=== PATIENT | female | born 1955 | race African-American/Black ===

== ENCOUNTER 2016-05-11 13:39 | Observation (INO) | payer BC, OTHER ==
[2016-05-11] VITALS (7 sets, daily range): BP systolic 165–199; BP diastolic 69–106; PULSE 84–107; RESP 18–20; O2SAT 96–100
[~2016-05-11 13:39] MED LIST: AMBI10TA PO; CELE10TA9 PO; DIAZ5 PO; IBUP-238 PO; OXYC-360 PO
[2016-05-11] MEDS ORDERED: SODIUM CHLOR 0.9% 1000 ML INJ 1,000 ML IV ONE (13:44)
--- NOTE | 2016-05-11 14:04 | PD ---
HPI Chief Complaint: Stroke Alert Time Seen by Provider: 13:44 Travel History International Travel<30 days: No Contact w/Intl Traveler<30days: No Traveled to known affect area: No History of Present Illness HPI 60-year-old female presents by ambulance as a stroke alert. The ambulance team states that they were initially called for a seizure. 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 In route she went back to normal again and then she started to develop the weakness again. On arrival here patient states that she had taken her NovoLog and was going to get something to eat when she didn't feel good and got help going down a step. Bystanders prevented her from hitting her head. 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 She denies being on any blood thinners currently. PFSH Past Medical History Narrative Medical By records Arthritis: Yes Blood Disorders: No Anxiety: Yes Cancer: Yes (UTERINE) Cardiovascular Problems: Yes Diabetes: No Endocrine: No Glaucoma: No Genitourinary: No Hepatitis: No Hiatal Hernia: No Hypertension: Yes Immune Disorder: No Musculoskeletal: Yes Neurologic: No Psychiatric: Yes Respiratory: No Thyroid Disease: No Menopausal: Yes Ovarian Cysts: Yes Past Surgical History Narrative Surgical By records Abdominal Surgery: No Cardiac Surgery: No Ear Surgery: Yes (PE TUBE RIGHT EAR) Endocrine Surgery: No Eye Surgery: No Genitourinary Surgery: No Gynecologic Surgery: Yes (D&C) Oral Surgery: No Thoracic Surgery: No Other Surgery: Yes (R WRIST) Social History Narrative Social History By records Alcohol Use: Yes (OCC) Tobacco Use: Yes (1/4PK/DAY) Substance Use: No Allergies-Medications (Allergen,Severity, Reaction): Coded Allergies: Tomato (Verified Allergy, Severe, ITCHING, 05/11/16) Levaquin (Verified Allergy, Intermediate, ITCHING, 05/11/16) Pineapple (Verified Allergy, Intermediate, LIPS SWELL, 05/11/16) Uncoded Allergies: VICODEN (Allergy, Mild, 04/20/08) MAYONNAISE (Adverse Reaction, Severe, LIPS SWELL, 03/13/08) Reported Meds & Prescriptions Reported Meds & Active Scripts Active Reported Tramadol (Tramadol HCl) 50 Mg Tab 50 Mg PO Q6H PRN Omeprazole 20 Mg Tab 20 Mg PO DAILY Novolog Inj (Insulin Aspart) 1,000 Unit/10 Ml Vial 0 SQ DIRECTED Sliding Scale as directed. Lantus Solostar Pen Inj (Insulin Glargine) 300 Unit/3 Ml Pen 40 Units SQ HS Hydrochlorothiazide 25 Mg Tab 25 Mg PO DAILY Atorvastatin (Atorvastatin Calcium) 20 Mg Tab 20 Mg PO HS Lisinopril 20 Mg Tab 20 Mg PO DAILY Zetia (Ezetimibe) 10 Mg Tab 10 Mg PO DAILY Gabapentin 600 Mg Tab 400 Mg PO QID Sertraline (Sertraline HCl) 50 Mg Tab 50 Mg PO DAILY Alprazolam 0.25 Mg Tab 0.25 Mg PO BID PRN Review of Systems Except as stated in HPI: all other systems reviewed are Neg Physical Exam Narrative GENERAL: Well-nourished, well-developed patient. SKIN: Warm and dry. HEAD: Normocephalic and atraumatic. EYES: No injection or drainage. ENT: No nasal drainage noted. NECK: Supple, trachea midline. CARDIOVASCULAR: Regular rate and rhythm RESPIRATORY: Breath sounds equal bilaterally. No accessory muscle use. GASTROINTESTINAL: Abdomen soft, non-tender, nondistended. EXTREMITIES: No edema. NEUROLOGICAL: Awake and alert. Motor and sensory grossly within normal limits. Normal speech. Equal grasp bilaterally Data Data Last Documented VS Vital Signs Date Time Temp Pulse Resp B/P Pulse Ox O2 Delivery O2 Flow Rate FiO2 05/11/16 14:39 100 Nasal Cannula 2 05/11/16 14:00 84 19 199/106 Orders Diet Npo (05/11/16 Lunch) Activity Bed Rest (05/11/16 ) Electrocardiogram (05/11/16 ) I-Stat Creatinine (05/11/16 13:44) I-Stat Profile (05/11/16 13:44) Prothrombin Time / Inr (Pt) (05/11/16 13:44) Act Partial Throm Time (Ptt) (05/11/16 13:44) Complete Blood Count With Diff (05/11/16 13:44) Fibrinogen (05/11/16 13:44) Creatine Kinase (Cpk) (05/11/16 13:44) Troponin I (05/11/16 13:44) Ua Includes Microscopic (05/11/16 13:44) Drug Screen, Random Urine (05/11/16 13:44) Type And Screen (05/11/16 13:44) Ct Brain W/O Iv Contrast(Rout) (05/11/16 ) Cta Brain W Iv Contrast W 3d (05/11/16 13:44) Cta Neck W Iv Contrast W 3d (05/11/16 13:44) Ct Cerebral Perf W Iv Cont W3d (05/11/16 13:44) Consult Neurology (05/11/16 ) Blood Glucose (05/11/16 13:44) Ecg Monitoring (05/11/16 13:44) Nursing Bedside Swallow Assess .ONCE (05/11/16 13:44) Iv Access Insert/Monitor (05/11/16 13:44) NPO (05/11/16 13:44) Oximetry (05/11/16 13:44) Sodium Chlor 0.9% 1000 Ml Inj (Ns 1000 M (05/11/16 13:44) Resp Oxygen Haroon C Titrat 1-4 L (05/11/16 13:44) Cath For Specimen (05/11/16 13:44) Alcohol (Ethanol) (05/11/16 14:06) Iohexol 350 Inj (Omnipaque 350 Inj) (05/11/16 14:13) Admit Order (Ed Use Only) (05/11/16 14:31) Aspirin (Aspirin) (05/11/16 14:45) Labs Laboratory Tests Test 05/11/16 05/11/16 13:45 14:32 White Blood Count 12.2 TH/MM3 Red Blood Count 4.29 MIL/MM3 Hemoglobin 13.8 GM/DL Bedside Hemoglobin 13.9 G/DL Hematocrit 41.8 % Bedside Hematocrit 41.0 % Mean Corpuscular Volume 97.6 FL Mean Corpuscular Hemoglobin 32.3 PG Mean Corpuscular Hemoglobin 33.1 % Concent Red Cell Distribution Width 14.4 % Platelet Count 356 TH/MM3 Mean Platelet Volume 8.8 FL Neutrophils (%) (Auto) 65.1 % Lymphocytes (%) (Auto) 28.3 % Monocytes (%) (Auto) 5.0 % Eosinophils (%) (Auto) 0.6 % Basophils (%) (Auto) 1.0 % Neutrophils # (Auto) 7.9 TH/MM3 Lymphocytes # (Auto) 3.5 TH/MM3 Monocytes # (Auto) 0.6 TH/MM3 Eosinophils # (Auto) 0.1 TH/MM3 Basophils # (Auto) 0.1 TH/MM3 CBC Comment DIFF FINAL Differential Comment Prothrombin Time 10.3 SEC Prothromb Time International 0.9 RATIO Ratio Activated Partial 22.2 SEC Thromboplast Time Fibrinogen 250 mg/dL Bedside Sodium 138 MMOL/L Bedside Potassium 4.3 MMOL/L Bedside Chloride 102 MMOL/L Bedside Blood Urea Nitrogen 11 MG/DL Bedside Creatinine 0.8 MG/DL Bedside Glucose 214 MG/DL Total Creatine Kinase 122 U/L Troponin I LESS THAN 0.02 NG/ML Blood Type O POSITIVE Antibody Screen NEGATIVE Urine Color LIGHT-YELLOW Urine Turbidity CLEAR Urine pH 6.5 Urine Specific [place] 1.033 Urine Protein NEG mg/dL Urine Glucose (UA) 1000 mg/dL Urine Ketones NEG mg/dL Urine Occult Blood NEG Urine Nitrite NEG Urine Bilirubin NEG Urine Urobilinogen LESS THAN 2.0 MG/DL Urine Leukocyte Esterase NEG Urine RBC 2 /hpf Urine WBC 2 /hpf Urine Squamous Epithelial 3 /hpf Cells Urine Bacteria RARE /hpf Microscopic Urinalysis Comment [facility] Medical Decision Making Medical Screen Exam Complete: Yes Emergency Medical Condition: Yes Medical Record Reviewed: Yes (limited past history confirmed) Interpretation(s) I stats reviewed glucose 214, normal electrolytes and renal function ct brain no acute per radiology at 1410 CBC & BMP Diagram 05/11/16 13:45 Last 24 hours Impressions Neck CTA 05/11/164 Signed Impressions: Service Date/Time: Wednesday, May 11, 2016 14:11 - CONCLUSION: 1. There is very minimal atherosclerotic plaquing in the carotid bifurcation on the right. 2. The right vertebral is diminutive in size. Rachid Fernandes MD Head/Neck CTA with Brain Perfusion 05/11/164 Signed Impressions: Service Date/Time: Wednesday, May 11, 2016 14:07 - CONCLUSION: 1. Normal examination. Rachid Fernandes MD Head CTA 05/11/16 1344 Signed Impressions: Service Date/Time: Wednesday, May 11, 2016 14:11 - CONCLUSION: 1. Negative CTA. No large or central vessel occlusion identified. Rachid Fernandes MD Head CT 05/11/16 0000 Signed Impressions: Service Date/Time: Wednesday, May 11, 2016 13:48 - CONCLUSION: 1. No evidence for recent infarct. Low-attenuation in the white matter most characteristic of chronic microvascular ischemic changes. Rey Franco MD Differential Diagnosis Bleed, TIA, hypoglycemia, electrolyte abnormality.... Narrative Course Will discuss with neurology and check stroke workup and reevaluate. Onset of symptoms were 30 minutes prior to arrival here with the ambulance team. Initial stroke scale is currently 0 she is back to baseline on my initial evaluation. The ambulance team described an expressive aphasia and left-sided weakness that intermittently would come and go on return from ct stroke alert scale still 0, patient declined TPA given intermittent symptoms without any currently and does not think life debilitating symptoms at this point. She agrees to admission for further care Physician Communication Physician Communication dr tripp given initial report and will follow dr tripp updated and agrees to no tpa, states give aspirin and admit dr bueno agrees to admit Diagnosis Primary Impression: Left-sided weakness Additional Impression: Expressive aphasia Admitting Information Admitting Physician Requests: Admit Estrella Bustos MD May 11, 2016 14:04
[2016-05-11 14:06] LABS: I-STAT POTASSIUM 4.3 MMOL/L (3.5-4.9); I-STAT SODIUM 138 MMOL/L (138-146)
[2016-05-11 14:08] LABS: AUTOMATED NEUTROPHIL # 7.9 TH/MM3 (1.8-7.7); BASOPHIL # 0.1 TH/MM3 (0-0.2); EOSINOPHIL # 0.1 TH/MM3 (0-0.4); EOSINOPHIL % 0.6 % (0.0-4.0); HEMATOCRIT 41.8 % (35.0-46.0); HEMO FLAGS DIFF FINAL; LYMPH % 28.3 % (9.0-44.0); LYMPHOCYTE # 3.5 TH/MM3 (1.0-4.8); MEAN CELL VOLUME 97.6 FL (80.0-100.0); MEAN CORPUSCULAR HEMOGLOBIN 32.3 PG (27.0-34.0); MEAN CORPUSCULAR HGB CONC 33.1 % (32.0-36.0); NEUT % 65.1 % (16.0-70.0); PLATELET COUNT 356 TH/MM3 (150-450); RED BLOOD COUNT 4.29 MIL/MM3 (4.00-5.30); RED CELL DISTRIBUTION WIDTH 14.4 % (11.6-17.2); WHITE BLOOD COUNT 12.2 TH/MM3 (4.0-11.0)
[2016-05-11] MEDS ORDERED: IOHEXOL 350 MG/ML 10 ML VIAL (for RAD DIAG) IV ONE (14:13)
--- NOTE | 2016-05-11 14:14 | RADRPT ---
EXAM DATE/TIME: 05/11/2016 13:48 [facility] COMPARISON: No previous studies available for comparison. INDICATIONS : Stroke alert; left side weakness, intermittent expressive aphagia. RADIATION DOSE: 52.83 CTDIvol (mGy) This report was called by Dr. Franco to Dr. Bustos at 2: 10 PM MEDICAL HISTORY : Stroke. Cardiovascular disease Hypertension.Uterine cancer. SURGICAL HISTORY : None. ENCOUNTER: Initial ACUITY: 1 day PAIN SCALE: 0/10 LOCATION: cranial TECHNIQUE: Multiple contiguous axial images were obtained of the head. Using automated exposure control and adj ustment of the mA and/or kV according to patient size, radiation dose was kept as low as reasonably a chievable to obtain optimal diagnostic quality images. FINDINGS: There are white matter ischemic changes in the periventricular region. No mass, shift. No hemorrhage. No hydrocephalus. No abnormal extra-axial fluid. CONCLUSION: 1. No evidence for recent infarct. Low-attenuation in the white matter most characteristic of chronic microvascular ischemic changes. Rey Franco MD on May 11, 2016 at 14:02 Board Certified Radiologist. This report was verified electronically.
[2016-05-11 14:17] LABS: APTT (PATIENT) 22.2 SEC (24.3-30.1); INTERNATIONAL NORMALIZED RATIO 0.9 RATIO; PROTHROMBIN TIME - PATIENT 10.3 SEC (9.8-11.6)
[2016-05-11 14:27] LABS: CREATINE KINASE 122 U/L (26-192)
--- NOTE | 2016-05-11 14:43 | RADRPT ---
EXAM DATE/TIME: 05/11/2016 14:11 [facility] COMPARISON: CT BRAIN W/O CONTRAST, May 11, 2016, 13:48. INDICATIONS : Stroke alert; left side weakness, intermittent expressive aphagia. IV CONTRAST: 100 cc Omnipaque 350 (iohexol) IV ; Cumulative dose for multiple exams. RADIATION DOSE: 14.78 CTDIvol (mGy) ; Combined studies MEDICAL HISTORY : Stroke. Cardiovascular disease Hypertension.Uterine cancer. SURGICAL HISTORY : None. ENCOUNTER: Initial ACUITY: 1 day PAIN SCALE: 0/10 LOCATION: cranial TECHNIQUE: Volumetric scanning was performed using a multi-row detector CT scanner. The data was post processed with a variety of visualization algorithms including full volume maximum intensity projection, multi -planar sliding thin slab reformation, curved planar reformation, and surface rendering techniques. Using automated exposure control and adjustment of the mA and/or kV according to patient size, radiat ion dose was kept as low as reasonably achievable to obtain optimal diagnostic quality images. FINDINGS: Both distal carotid arteries are patent. The vertebrals are patent. The right vertebral somewhat smal l in size. The basilar is widely patent. The appearance of the anterior and middle cerebral circulation is within normal limits. The posterior cerebral circulation is widely patent CONCLUSION: 1. Negative CTA. No large or central vessel occlusion identified. Rachid Fernandes MD on May 11, 2016 at 14:39 Board Certified Radiologist. This report was verified electronically.
[2016-05-11] MEDS ORDERED: ASPIRIN 325 MG TAB PO ONE (14:45)
[2016-05-11 14:51] LABS: BACTERIA, URINE RARE /hpf; BLOOD, URINE NEG (NEG); GLUCOSE,URINE 1000 mg/dL (NEG); KETONE, URINE NEG (NEG); NITRITE,URINE NEG (NEG); PH, URINE 6.5 (5.0-8.5); SQUAMOUS EPITHELIAL CELL URINE 3 /hpf (0-5); URINE COLOR LIGHT-YELLOW (YELLW/STRAW)
--- NOTE | 2016-05-11 15:06 | RADRPT ---
EXAM DATE/TIME: 05/11/2016 14:07 [facility] COMPARISON: CT BRAIN W/O CONTRAST, May 11, 2016, 13:48. INDICATIONS : Stroke alert; left side weakness, intermittent expressive aphagia. IV CONTRAST: 100 cc Omnipaque 350 (iohexol) IV ; Cumulative dose for multiple exams. RADIATION DOSE: 94.11 CTDIvol (mGy) ; Combined studies MEDICAL HISTORY : Stroke. Cardiovascular disease Hypertension.Uterine cancer. SURGICAL HISTORY : None. ENCOUNTER: Initial ACUITY: 1 day PAIN SCALE: 0/10 LOCATION: cranial TECHNIQUE: CT perfusion of the brain was performed with calculation of input and output functions and generation of color coded blood flow, blood volume and mean transit time maps. Using automated exposure control and adjustment of the mA and/or kV according to patient size, radiation dose was kept as low as reas onably achievable to obtain optimal diagnostic quality images. FINDINGS: There is symmetric perfusion to both cerebral hemispheres, cerebellar hemispheres and normal flow is identified to the brainstem. There are no findings of infarction or ischemic penumbra. CONCLUSION: 1. Normal examination. Rachid Fernandes MD on May 11, 2016 at 15:04 Board Certified Radiologist. This report was verified electronically.
--- NOTE | 2016-05-11 15:09 | RADRPT ---
EXAM DATE/TIME: 05/11/2016 14:11 [facility] COMPARISON: CT BRAIN CEREBRAL PERF ANALYSIS W/3D, May 11, 2016, 14:07. INDICATIONS : Stroke alert; left side weakness, intermittent expressive aphagia. IV CONTRAST: 100 cc Omnipaque 350 (iohexol) IV ; Cumulative dose for multiple exams. RADIATION DOSE: 14.78 CTDIvol (mGy) ; Combined studies MEDICAL HISTORY : Stroke. Cardiovascular disease Hyperthyroidism.Uterine cancer. SURGICAL HISTORY : None. ENCOUNTER: Initial ACUITY: 1 day PAIN SCALE: 0/10 LOCATION: cranial TECHNIQUE: Volumetric scanning was performed using a multirow detector CT scanner. The data was post processed with a variety of visualization algorithms including full-volume maximum intensity projection, multip lanar sliding thin-slab reformation, curved-planar reformation, and surface-rendering techniques. Us ing automated exposure control and adjustment of the mA and/or kV according to patient size, radiatio n dose was kept as low as reasonably achievable to obtain optimal diagnostic quality images. FINDINGS: AORTIC ARCH: There is a three-vessel origin of the great vessels from the aorta. No evidence of ostial narrowing. RIGHT CAROTID: The common carotid artery is intact. The carotid bulb has a normal configuration with only very sligh t atherosclerotic plaquing. The internal carotid artery lumen is smooth without stenosis. The top flavor attendant al carotid artery is intact. LEFT CAROTID: The common carotid artery is intact. The carotid bulb has a normal configuration without ulceration or narrowing. The internal carotid artery lumen is smooth without stenosis. The external carotid ar lisandra is intact. VERTEBRALS: The right vertebral artery is diminutive in size. The left vertebral is a sizable vessel. No stenoti c lesions are seen. CONCLUSION: 1. There is very minimal atherosclerotic plaquing in the carotid bifurcation on the right. 2. The right vertebral is diminutive in size. Rachid Fernandes MD on May 11, 2016 at 15:05 Board Certified Radiologist. This report was verified electronically.
[2016-05-11] MEDS ORDERED: NOVOLOGP2 SQ (15:12)
[2016-05-11] MEDS ORDERED: ZETI10TA5 PO (15:12)
[2016-05-11] MEDS ORDERED: ATOR20TA15 PO (15:12)
[2016-05-11] MEDS ORDERED: TRAM50TA PO (15:12)
[2016-05-11] MEDS ORDERED: GABA600T PO (15:12)
[2016-05-11] MEDS ORDERED: SERT-132 PO (15:12)
[2016-05-11] MEDS ORDERED: ALPR0.25 PO (15:12)
[2016-05-11] MEDS ORDERED: OMEP20TA PO (15:12)
[2016-05-11] MEDS ORDERED: LISI-515 PO (15:12)
[2016-05-11] MEDS ORDERED: HYDR25TA5 PO (15:12)
[2016-05-11] MEDS ORDERED: LANTINJ SQ (15:12)
--- NOTE | 2016-05-11 16:14 | EKG ---
Date Performed: 05/11/2016 Time Performed: 14:28:08 PTAGE: 60 years EKG: Sinus rhythm POSSIBLE LEFT ATRIAL ENLARGEMENT BORDERLINE ECG PREVIOUS TRACING : 09/26/2008 11.18 DOCTOR: Benjie Mauricio Interpretating Date/Time 05/11/2016 16:12:25
--- NOTE | 2016-05-11 17:26 | HHI.HP ---
HPI Service [facility] Primary Care Physician No Primary Care Physician Admission Diagnosis intermittent expressive aphasia Diagnoses: Chief Complaint: Stroke alert Travel History International Travel<30 Days: No Contact w/Intl Traveler <30 Da: No Traveled to Known Affected Are: No History of Present Illness 60 years old female brought in the ambulance to the ED and a stroke alert. Per the EMR patient initially was brought due to seizure however they noticed some difficulty with speech and her blood pressure was 255 systolic with a blood sugar of 300. The patient told me that the symptoms started this afternoon when she woke up and gave herself 10 units of NovoLog and she went to do herself a meal when she started feeling cold with short of breath and feeling wobbly, she denied cold sweat, I discussed with her daughter and with the lady who was with her and witnessed episode. She told me patient lost consciousness for a few seconds and she was shaking all her body, she could not give exact type of that shaking. 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 Then she told me she had a history of glaucoma, and similar episode which she called it a stroke in the past. 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 The lady who witnessed her also mentioned some slurred speech. Age and symptoms resolved after arriving to ED, neurology has been contacted, the decision was made not to administer TPA Currently patient feeling anxious, no chest pain or short of breath or headache or blurry vision, her neuro exam is within normal limits, no abdominal pain diarrhea or constipation, no orthopnea or PND or leg swelling. She admitted smoking and drinking alcohol daily. Review of Systems Other All 10 systems reviewed and was positive for what is mentioned in history of present illness otherwise negative Past Family Social History Past Medical History Glaucoma Cataract History of CVA in the past Pheochromocytoma status post left adrenalectomy History of uterine cancer Past Surgical History Back surgery Hysterectomy Left adrenalectomy Allergies: Coded Allergies: Tomato (Verified Allergy, Severe, ITCHING, 05/11/16) Levaquin (Verified Allergy, Intermediate, ITCHING, 05/11/16) Pineapple (Verified Allergy, Intermediate, LIPS SWELL, 05/11/16) Uncoded Allergies: VICODEN (Allergy, Mild, 04/20/08) Family History Mother and father had strokes, father had multiple myeloma Physical Exam Vital Signs Vital Signs Date Time Temp Pulse Resp B/P Pulse Ox O2 Delivery O2 Flow Rate FiO2 05/11/16 15:02 87 20 165/69 98 Nasal Cannula 2 05/11/16 14:41 90 18 171/93 98 Nasal Cannula 2 05/11/16 14:39 100 Nasal Cannula 2 05/11/16 14:00 84 19 199/106 100 Nasal Cannula 2 05/11/16 13:46 94 20 173/104 100 Nasal Cannula 2 05/11/16 13:45 101 20 191/92 100 Room Air 05/11/16 13:40 99 Nasal Cannula 2.00 05/11/16 13:40 99 2.00 Physical Exam GENERAL: This is a well-nourished, well-developed patient, in no apparent distress. SKIN: No rashes, ecchymoses or lesions. Cool and dry. HEAD: Atraumatic. Normocephalic. No temporal or scalp tenderness. EYES: Pupils equal round and reactive. Extraocular motions intact. No scleral icterus. No injection or drainage. ENT: Nose without bleeding, purulent drainage or septal hematoma. Throat without erythema, tonsillar hypertrophy or exudate. Uvula midline. Airway patent. NECK: Trachea midline. No JVD or lymphadenopathy. Supple, nontender, no meningeal signs. CARDIOVASCULAR: Regular rate and rhythm without murmurs, gallops, or rubs. RESPIRATORY: Clear to auscultation. Breath sounds equal bilaterally. No wheezes , rales, or rhonchi. GASTROINTESTINAL: Abdomen soft, non-tender, nondistended. No hepato-splenomegaly , or palpable masses. No guarding. MUSCULOSKELETAL: Extremities without clubbing, cyanosis, or edema. No joint tenderness, effusion, or edema noted. No calf tenderness. Negative Homans sign bilaterally. NEUROLOGICAL: Awake and alert. Cranial nerves II through XII intact. Motor and sensory grossly within normal limits. Five out of 5 muscle strength in all muscle groups. Normal speech. Laboratory Laboratory Tests Test 05/11/16 05/11/16 13:45 14:32 White Blood Count 12.2 Red Blood Count 4.29 Hemoglobin 13.8 Bedside Hemoglobin 13.9 Hematocrit 41.8 Bedside Hematocrit 41.0 Mean Corpuscular Volume 97.6 Mean Corpuscular Hemoglobin 32.3 Mean Corpuscular Hemoglobin 33.1 Concent Red Cell Distribution Width 14.4 Platelet Count 356 Mean Platelet Volume 8.8 Neutrophils (%) (Auto) 65.1 Lymphocytes (%) (Auto) 28.3 Monocytes (%) (Auto) 5.0 Eosinophils (%) (Auto) 0.6 Basophils (%) (Auto) 1.0 Neutrophils # (Auto) 7.9 Lymphocytes # (Auto) 3.5 Monocytes # (Auto) 0.6 Eosinophils # (Auto) 0.1 Basophils # (Auto) 0.1 CBC Comment DIFF FINAL Differential Comment Prothrombin Time 10.3 Prothromb Time International 0.9 Ratio Activated Partial 22.2 Thromboplast Time Fibrinogen 250 Bedside Sodium 138 Bedside Potassium 4.3 Bedside Chloride 102 Bedside Blood Urea Nitrogen 11 Bedside Creatinine 0.8 Bedside Glucose 214 Total Creatine Kinase 122 Troponin I LESS THAN 0.02 Ethyl Alcohol Level LESS THAN 3 Blood Type O POSITIVE Antibody Screen NEGATIVE Urine Color LIGHT-YELLOW Urine Turbidity CLEAR Urine pH 6.5 Urine Specific [place] 1.033 Urine Protein NEG Urine Glucose (UA) 1000 Urine Ketones NEG Urine Occult Blood NEG Urine Nitrite NEG Urine Bilirubin NEG Urine Urobilinogen LESS THAN 2.0 Urine Leukocyte Esterase NEG Urine RBC 2 Urine WBC 2 Urine Squamous Epithelial 3 Cells Urine Bacteria RARE Microscopic Urinalysis Comment Result Diagram: 05/11/16 1345 Imaging Last Impressions Neck CTA 05/11/161343 Signed Impressions: Service Date/Time: Wednesday, May 11, 2016 14:11 - CONCLUSION: 1. There is very minimal atherosclerotic plaquing in the carotid bifurcation on the right. 2. The right vertebral is diminutive in size. Rachid Fernandes MD Head/Neck CTA with Brain Perfusion 05/11/[id number] Signed Impressions: Service Date/Time: Wednesday, May 11, 2016 14:07 - CONCLUSION: 1. Normal examination. Rachid Fernandes MD Head CTA 05/11/164 Signed Impressions: Service Date/Time: Wednesday, May 11, 2016 14:11 - CONCLUSION: 1. Negative CTA. No large or central vessel occlusion identified. Rachid Fernandes MD Head CT 1/4/17 0000 Signed Impressions: Service Date/Time: Wednesday, May 11, 2016 13:48 - CONCLUSION: 1. No evidence for recent infarct. Low-attenuation in the white matter most characteristic of chronic microvascular ischemic changes. Rey Franco MD Assessment and Plan Assessment and Plan 60 years old female admitted with stroke alert due to losing of consciousness, seizure, slurred speech TIA left internal carotid artery versus hypertension encephalopathy Hypertension urgency malignant Anxiety Leukocytosis mostly stress reaction History of alcohol and tobacco abuse Diabetes mellitus polyneuropathy Diabetes mellitus DVT prophylaxis Plan: Admit for observation Permissive hypertension keep blood pressure below 160/100, Vasotec and labetalol when necessary Head and neck CTA reviewed personally by me no significant etiology explain the symptom Neurology consulted and commended no TPA Patient was given ASA 2-D echo Holter monitor EEG [facility] protocol Smoking cessation counseling Patient is on 40 units of Levemir at home, will reduce that to 15 units and cover with insulin sliding scale and monitor Accu-Chek with diabetic diet and diabetic education Shari Russell MD May 11, 2016 17:26
[2016-05-11] MEDS ORDERED: LORazepam 1 MG TAB PO PRN (17:30)
[2016-05-11] MEDS ORDERED: SENNOSIDES 8.6 MG TAB PO PRN (17:30)
[2016-05-11] MEDS ORDERED: FLUMAZENIL 1 MG/10 ML VIAL IV PUSH PRN (17:30)
[2016-05-11] MEDS ORDERED: BISACODYL 10 MG SUPP PR PRN (17:30)
[2016-05-11] MEDS ORDERED: ACETAMINOPHEN 325 MG TAB PO PRN (17:30)
[2016-05-11] MEDS ORDERED: SODIUM CHLORIDE 0.9% FLUSH 5 ML FLUSH FLUSH PRN (17:30)
[2016-05-11] MEDS ORDERED: LORazepam 2 MG/ML VIAL IV PUSH PRN ×4 (17:30)
[2016-05-11] MEDS ORDERED: MAGNESIUM HYDROXIDE SUSP 30 ML CUP PO PRN (17:30)
[2016-05-11] MEDS ORDERED: LORazepam 2 MG TAB PO PRN (17:30)
[2016-05-11] MEDS ORDERED: ONDANSETRON HCL 4 MG/2 ML VIAL IVP PRN (17:30)
[2016-05-11] MEDS ORDERED: NALOXONE HCL 0.4 MG/ML AMP IV PRN (17:30)
[2016-05-11] MEDS ORDERED: DEXTROSE 50% IN WATER 50 ML VIAL(D50) IV PUSH PRN (18:00)
[2016-05-11] MEDS ORDERED: GLUCAGON 1 MG/ML VIAL OTHER PRN (18:00)
--- NOTE | 2016-05-11 18:02 | PD.CONS ---
History of Present Illness Service Neurology Consult Requested By er Reason for Consult possible stroke alert Primary Care Physician No Primary Care Physician History of Present Illness 60-year-old female presents by ambulance as a stroke alert. The ambulance team states that they were initially called for a seizure. but noticed some difficulty with speech. she states evac told her that her bp was 255 systolic. glucose >300. ct brain naicp. cta brain/carotid, no significant occlusion noted. glucose here 214. 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 She denies being on any blood thinners currently.+ tob use no tpa given with resolution of symptoms. stress: very high level 2/2 job, financial and health concerns PFSH Past Medical History Narrative Medical By records Arthritis: Yes Blood Disorders: No Anxiety: Yes Cancer: Yes (UTERINE) Cardiovascular Problems: Yes Diabetes: No Endocrine: No Glaucoma: No Genitourinary: No Hepatitis: No Hiatal Hernia: No Hypertension: Yes Immune Disorder: No Musculoskeletal: Yes Neurologic: No Psychiatric: Yes Respiratory: No Thyroid Disease: No Menopausal: Yes Ovarian Cysts: Yes Past Surgical History Narrative Surgical By records Abdominal Surgery: No Cardiac Surgery: No Ear Surgery: Yes (PE TUBE RIGHT EAR) Endocrine Surgery: No Eye Surgery: No Genitourinary Surgery: No Gynecologic Surgery: Yes (D&C) Oral Surgery: No Thoracic Surgery: No Other Surgery: Yes (R WRIST) Social History Narrative Social History By records Alcohol Use: Yes (OCC) Tobacco Use: Yes (1/4PK/DAY) Substance Use: No Allergies-Medications (Allergen,Severity, Reaction): Coded Allergies: Tomato (Verified Allergy, Severe, ITCHING, 05/11/16) Levaquin (Verified Allergy, Intermediate, ITCHING, 05/11/16) Pineapple (Verified Allergy, Intermediate, LIPS SWELL, 05/11/16) Uncoded Allergies: VICODEN (Allergy, Mild, 04/20/08) MAYONNAISE (Adverse Reaction, Severe, LIPS SWELL, 03/13/08) Review of Systems Except as stated in HPI: all other systems reviewed are Neg Review of Systems All other ROS: ROS reviewed as documented in chart Past Family Social History Allergies: Coded Allergies: Tomato (Verified Allergy, Severe, ITCHING, 05/11/16) Levaquin (Verified Allergy, Intermediate, ITCHING, 05/11/16) Pineapple (Verified Allergy, Intermediate, LIPS SWELL, 05/11/16) Uncoded Allergies: VICODEN (Allergy, Mild, 04/20/08) MAYONNAISE (Adverse Reaction, Severe, LIPS SWELL, 03/13/08) Active Ordered Medications Current Medications Medications (Trade) Dose Ordered Sig/Sha Route Start Time Stop Time Status Last Admin (NS 1000 ml Inj) 1,000 ml @ 70 mls/hr [id number] ONCE IV 05/11/16 13:44 05/12/16 04:01 05/11/16 14:56 (NS Flush) 2 ml UNSCH PRN FLUSH 05/11/16 17:30 UNV (NS Flush) 2 ml BID FLUSH 05/11/16 21:00 UNV (Tylenol) 650 mg Q4H PRN PO 05/11/16 17:30 UNV (Zofran Inj) 4 mg Q6H PRN IVP 05/11/16 17:30 UNV (Dulcolax Supp) 10 mg DAILY PRN W[place] 05/11/16 17:30 UNV (Colace) 100 mg Q12H PO 05/11/16 17:30 UNV (Milk Of Magnesia Liq) 30 ml Q12H PRN PO 05/11/16 17:30 UNV (Senokot) 17.2 mg Q12H PRN PO 05/11/16 17:30 UNV (Heparin Inj) 5,000 units Q8H SQ 05/11/16 17:30 UNV (Narcan Inj) 0.4 mg UNSCH PRN IV 05/11/16 17:30 UNV (Romazicon Inj) 0.2 mg Q1M PRN IV PUSH 05/11/16 17:30 05/11/16 17:35 UNV (Ativan) 1 mg Q4H PRN PO 05/11/16 17:30 UNV (Ativan Inj) 1 mg Q4H PRN IV PUSH 05/11/16 17:30 UNV (Ativan) 2 mg Q2H PRN PO 05/11/16 17:30 UNV (Ativan Inj) 2 mg Q2H PRN IV PUSH 05/11/16 17:30 UNV (Ativan Inj) 2 mg Q1H PRN IV PUSH 05/11/16 17:30 UNV (Ativan Inj) 2 mg Q15M PRN IV PUSH 05/11/16 17:30 UNV (Aspirin) 325 mg DAILY PO 05/12/16 09:00 UNV Family History +htn Exam I&O / VS Vital Signs Date Time Temp Pulse Resp B/P Pulse Ox O2 Delivery O2 Flow Rate FiO2 05/11/16 15:02 87 20 165/69 98 Nasal Cannula 2 05/11/16 14:41 90 18 171/93 98 Nasal Cannula 2 05/11/16 14:39 100 Nasal Cannula 2 05/11/16 14:00 84 19 199/106 100 Nasal Cannula 2 05/11/16 13:46 94 20 173/104 100 Nasal Cannula 2 05/11/16 13:45 101 20 191/92 100 Room Air 05/11/16 13:40 99 Nasal Cannula 2.00 05/11/16 13:40 99 2.00 General: Alert and Oriented, No acute distress Eye: EOMI Respiratory: Non-labored respirations Cardiology: Normal rate Neurologic: Alert, Oriented Psychiatric: Cooperative, Appropriate mood & affect, Normal judgement, Non- suicidal Exam Comments ox 3, fluent, follows, no aphasia, eomi, face sym, articulate but slow speech times which appears deliberate, no focal weakness, no drift, mild ue dystaxia that improved on repetition, moderate stocking-glove neuropathy, msr 1-2+sym Review/Management Diagnosis/Plan: (1) TIA involving left internal carotid artery Plan: possible vs htn encephalopathy recs mri brain aspirin bp <160/100 p.t. labs echo tobacco cessation/lifestyle modification follow exam (2) Hypertensive urgency, malignant Plan: bp control (3) Anxiety Plan: on xanax (4) Panic attacks (5) DM polyneuropathy Plan: on gabapentin (6) DM (diabetes mellitus) Problem Qualifiers (1) DM polyneuropathy: Qualified Code: E08.42 - Diabetic polyneuropathy associated with diabetes mellitus due to underlying condition (2) DM (diabetes mellitus): Tommy Chapa MD May 11, 2016 18:02
[2016-05-11] MEDS ORDERED: ALPRAZolam 0.25 MG TAB PO PRN (18:15)
[2016-05-11] MEDS: DOCUSATE SODIUM 100 MG CAP PO SCH (18:51)
[2016-05-11] MEDS: HEPARIN SODIUM - SQ 10,000 UNITS/ML VIAL SQ SCH (18:51)
[2016-05-11] MEDS: SODIUM CHLORIDE 0.9% FLUSH 5 ML FLUSH FLUSH SCH (20:57)
[2016-05-11] MEDS: ATORVASTATIN 20 MG TAB PO SCH (20:58)
[2016-05-11] MEDS: GABAPENTIN 400 MG CAP PO SCH (20:58)
[2016-05-11] MEDS: INSULIN DETEMIR 100 UNITS/ML VIAL SQ SCH (20:59)
[2016-05-11] MEDS: INSULIN NovoLIN REGULAR SUPPLEMENTAL SCALE SQ SCH (20:59)
[2016-05-11] MEDS ORDERED: GABAPENTIN 400 MG CAP PO SCH (21:00)
[2016-05-11] MEDS ORDERED: INSULIN ASPART SUPPLEMENTAL SCALE SQ SCH (21:00)
[2016-05-11 23:09] LABS: AMPHETAMINE, URINE NEG (NEG); BARBITURATES, URINE NEG (NEG); COCAINE, URINE NEG (NEG)
[2016-05-12] VITALS (15 sets, daily range): BP systolic 130–201; BP diastolic 67–88; PULSE 78–99; RESP 16–24; TEMP 97.8–99; O2SAT 92–100
[2016-05-12] MEDS: HEPARIN SODIUM - SQ 10,000 UNITS/ML VIAL SQ SCH ×3 (03:19→17:49)
[2016-05-12 04:34] LABS: AUTOMATED NEUTROPHIL # 5.7 TH/MM3 (1.8-7.7); BASOPHIL # 0.1 TH/MM3 (0-0.2); BASOPHIL % 0.4 % (0.0-2.0); EOSINOPHIL # 0.3 TH/MM3 (0-0.4); EOSINOPHIL % 2.1 % (0.0-4.0); HEMATOCRIT 35.9 % (35.0-46.0); HEMO FLAGS DIFF FINAL; LYMPH % 42.8 % (9.0-44.0); MEAN CELL VOLUME 97.3 FL (80.0-100.0); MEAN CORPUSCULAR HEMOGLOBIN 31.8 PG (27.0-34.0); MEAN CORPUSCULAR HGB CONC 32.7 % (32.0-36.0); MONO % 6.2 % (0.0-8.0); NEUT % 48.5 % (16.0-70.0); PLATELET COUNT 309 TH/MM3 (150-450); RED BLOOD COUNT 3.69 MIL/MM3 (4.00-5.30); RED CELL DISTRIBUTION WIDTH 14.3 % (11.6-17.2); WHITE BLOOD COUNT 11.7 TH/MM3 (4.0-11.0)
[2016-05-12 05:03] LABS: BICARBONATE 26.5 MEQ/L (21.0-32.0); HDL CHOLESTEROL 39.1 MG/DL (40.0-60.0); POTASSIUM 3.7 MEQ/L (3.5-5.1)
[2016-05-12] MEDS: DOCUSATE SODIUM 100 MG CAP PO SCH ×2 (06:22→17:48)
[2016-05-12] MEDS: INSULIN NovoLIN REGULAR SUPPLEMENTAL SCALE SQ SCH ×4 (08:07→21:21)
[2016-05-12] MEDS: SODIUM CHLORIDE 0.9% FLUSH 5 ML FLUSH FLUSH SCH ×2 (09:00→21:22)
[2016-05-12] MEDS: GABAPENTIN 400 MG CAP PO SCH ×2 (09:05→17:48)
[2016-05-12] MEDS: ASPIRIN 325 MG TAB PO SCH (09:05)
[2016-05-12] MEDS: SERTRALINE HCL 50 MG TAB PO SCH (09:06)
[2016-05-12] MEDS: PANTOPRAZOLE SOD 20 MG DELAYED RELEASE TAB PO SCH (09:06)
--- NOTE | 2016-05-12 09:28 | HHI.PR ---
Review/Management Diagnosis/Plan: (1) TIA involving left internal carotid artery Plan: possible vs htn encephalopathy recs mri brain-pending aspirin bp improved p.t. labs echo-pending bp/glucose control tobacco cessation/lifestyle modification d/c planning today if above normal (2) Hypertensive urgency, malignant Plan: bp control (3) Anxiety Plan: on xanax (4) Panic attacks (5) DM polyneuropathy Plan: on gabapentin (6) DM (diabetes mellitus) Subjective Subjective Comments No acute events reported No headache No chest pain No dyspnea Active Medications Current Medications Medications (Trade) Dose Ordered Sig/Sha Route Start Time Stop Time Status Last Admin (NS Flush) 2 ml UNSCH PRN FLUSH 05/11/16 17:30 (NS Flush) 2 ml BID FLUSH 05/11/16 21:00 05/11/16 20:57 (Tylenol) 650 mg Q4H PRN PO 05/11/16 17:30 (Zofran Inj) 4 mg Q6H PRN IVP 05/11/16 17:30 (Dulcolax Supp) 10 mg DAILY PRN PA 05/11/16 17:30 (Colace) 100 mg Q12H PO 05/11/16 18:00 05/12/16 06:22 (Milk Of Magnesia Liq) 30 ml Q12H PRN PO 05/11/16 17:30 05/12/16 06:43 (Senokot) 17.2 mg Q12H PRN PO 05/11/16 17:30 (Heparin Inj) 5,000 units Q8H SQ 05/11/16 18:00 05/12/16 09:06 (Narcan Inj) 0.4 mg UNSCH PRN IV 05/11/16 17:30 (Ativan) 1 mg Q4H PRN PO 05/11/16 17:30 (Ativan Inj) 1 mg Q4H PRN IV PUSH 05/11/16 17:30 (Ativan) 2 mg Q2H PRN PO 05/11/16 17:30 (Ativan Inj) 2 mg Q2H PRN IV PUSH 05/11/16 17:30 (Ativan Inj) 2 mg Q1H PRN IV PUSH 05/11/16 17:30 05/12/16 08:08 (Ativan Inj) 2 mg Q15M PRN IV PUSH 05/11/16 17:30 (Aspirin) 325 mg DAILY PO 05/12/16 09:00 05/12/16 09:05 (D50w (Vial) Inj) 25 ml UNSCH PRN IV PUSH 05/11/16 18:00 (Glucagon Inj) 1 mg UNSCH PRN OTHER 05/11/16 18:00 (Xanax) 0.25 mg Q8H PRN PO 05/11/16 18:15 (Levemir Inj) 15 units HS SQ 05/11/16 21:00 05/11/16 20:59 (Lipitor) 20 mg HS PO 05/11/16 21:00 05/11/16 20:58 (Zetia) 10 mg DAILY PO 05/12/16 09:00 (Neurontin) 400 mg QID PO 05/11/16 21:00 05/12/16 09:05 (Protonix) 20 mg DAILY PO 05/12/16 09:00 05/12/16 09:06 (Zoloft) 50 mg DAILY PO 05/12/16 09:00 05/12/16 09:06 (Vasotec Inj) 1.25 mg Q4H PRN IV 05/12/16 09:30 (Trandate Inj) 10 mg Q2H PRN IV 05/12/16 09:30 Allergies Allergies Coded Allergies Tomato (Verified Allergy, Severe, ITCHING, 05/11/16) Levaquin (Verified Allergy, Intermediate, ITCHING, 05/11/16) Pineapple (Verified Allergy, Intermediate, LIPS SWELL, 05/11/16) Uncoded Allergies VICODEN ( Allergy, Mild, 04/20/08) Review of Systems All other ROS: ROS reviewed as documented in chart Exam I&O / VS Vital Signs Date Time Temp Pulse Resp B/P Pulse Ox O2 Delivery O2 Flow Rate FiO2 05/12/16 09:14 78 16 149/80 97 Room Air 05/12/16 08:18 98.0 97 24 178/86 99 Room Air 05/12/16 07:47 26 100 Room Air 05/12/16 01:00 94 18 159/78 99 Nasal Cannula 2 05/11/16 21:01 107 18 173/81 96 Nasal Cannula 2 05/11/16 15:02 87 20 165/69 98 Nasal Cannula 2 05/11/16 14:41 90 18 171/93 98 Nasal Cannula 2 05/11/16 14:39 100 Nasal Cannula 2 05/11/16 14:00 84 19 199/106 100 Nasal Cannula 2 05/11/16 13:46 94 20 173/104 100 Nasal Cannula 2 05/11/16 13:45 101 20 191/92 100 Room Air 05/11/16 13:40 99 Nasal Cannula 2.00 05/11/16 13:40 99 2.00 General: Alert and Oriented, No acute distress Eye: EOMI Respiratory: Non-labored respirations Cardiology: Normal rate Neurologic: Alert, Oriented Psychiatric: Cooperative, Appropriate mood & affect, Normal judgement, Non- suicidal Exam Comments ox 3, fluent, follows, no aphasia, eomi, face sym, slow speech times which appears deliberate, no focal weakness, no drift, moderate stocking-glove neuropathy, msr 1-2+sym Objective Micro and Labs Laboratory Tests Test 05/11/16 05/11/16 05/12/16 13:45 14:32 03:52 White Blood Count 12.2 11.7 Red Blood Count 4.29 3.69 Hemoglobin 13.8 11.7 Bedside Hemoglobin 13.9 Hematocrit 41.8 35.9 Bedside Hematocrit 41.0 Mean Corpuscular Volume 97.6 97.3 Mean Corpuscular Hemoglobin 32.3 31.8 Mean Corpuscular Hemoglobin 33.1 32.7 Concent Red Cell Distribution Width 14.4 14.3 Platelet Count 356 309 Mean Platelet Volume 8.8 8.2 Neutrophils (%) (Auto) 65.1 48.5 Lymphocytes (%) (Auto) 28.3 42.8 Monocytes (%) (Auto) 5.0 6.2 Eosinophils (%) (Auto) 0.6 2.1 Basophils (%) (Auto) 1.0 0.4 Neutrophils # (Auto) 7.9 5.7 Lymphocytes # (Auto) 3.5 5.0 Monocytes # (Auto) 0.6 0.7 Eosinophils # (Auto) 0.1 0.3 Basophils # (Auto) 0.1 0.1 CBC Comment DIFF FINAL DIFF FINAL Differential Comment Prothrombin Time 10.3 Prothromb Time International 0.9 Ratio Activated Partial 22.2 Thromboplast Time Fibrinogen 250 Bedside Sodium 138 Bedside Potassium 4.3 Bedside Chloride 102 Bedside Blood Urea Nitrogen 11 Bedside Creatinine 0.8 Bedside Glucose 214 Total Creatine Kinase 122 Troponin I LESS THAN 0.02 Ethyl Alcohol Level LESS THAN 3 Blood Type O POSITIVE Antibody Screen NEGATIVE Urine Color LIGHT-YELLOW Urine Turbidity CLEAR Urine pH 6.5 Urine Specific [place] 1.033 Urine Protein NEG Urine Glucose (UA) 1000 Urine Ketones NEG Urine Occult Blood NEG Urine Nitrite NEG Urine Bilirubin NEG Urine Urobilinogen LESS THAN 2.0 Urine Leukocyte Esterase NEG Urine RBC 2 Urine WBC 2 Urine Squamous Epithelial 3 Cells Urine Bacteria RARE Microscopic Urinalysis Comment Urine Opiates Screen NEG Urine Barbiturates Screen NEG Urine Amphetamines Screen NEG Urine Benzodiazepines Screen NEG Urine Cocaine Screen NEG Urine Cannabinoids Screen NEG Sodium Level 141 Potassium Level 3.7 Chloride Level 107 Carbon Dioxide Level 26.5 Anion Gap 8 Blood Urea Nitrogen 12 Creatinine 0.88 Estimat Glomerular Filtration 79 Rate Random Glucose 133 Calcium Level 8.2 Triglycerides Level 277 Cholesterol Level 202 LDL Cholesterol 108 HDL Cholesterol 39.1 Cholesterol/HDL Ratio 5.16 Problem Qualifiers (1) DM polyneuropathy: Qualified Code: E08.42 - Diabetic polyneuropathy associated with diabetes mellitus due to underlying condition (2) DM (diabetes mellitus): Tommy Chapa MD May 12, 2016 09:28
[2016-05-12] MEDS ORDERED: LABETALOL HCL 100 MG/20 ML VIAL IV PRN (09:30)
[2016-05-12] MEDS ORDERED: ENALAPRILAT 1.25 MG/ML VIAL IV PRN (09:30)
[2016-05-12] MEDS: EZETIMIBE 10 MG TAB PO SCH (09:58)
--- NOTE | 2016-05-12 12:35 | HHI.PR ---
Subjective Remarks Patient laying in bed, just had EEG done Stated she had headache, no nausea or vomiting No seizure episodes Seen by neurology will fulfill the workup of MRI 2-D echo EEG, those are negative patient can be discharged home She also complained off constipation Objective Vitals Vital Signs Date Time Temp Pulse Resp B/P Pulse Ox O2 Delivery O2 Flow Rate FiO2 05/12/16 12:19 84 16 133/71 100 Nasal Cannula 2 05/12/16 09:14 78 16 149/80 97 Room Air 05/12/16 08:18 98.0 97 24 178/86 99 Room Air 05/12/16 07:47 26 100 Room Air 05/12/16 01:00 94 18 159/78 99 Nasal Cannula 2 05/11/16 21:01 107 18 173/81 96 Nasal Cannula 2 05/11/16 15:02 87 20 165/69 98 Nasal Cannula 2 05/11/16 14:41 90 18 171/93 98 Nasal Cannula 2 05/11/16 14:39 100 Nasal Cannula 2 05/11/16 14:00 84 19 199/106 100 Nasal Cannula 2 05/11/16 13:46 94 20 173/104 100 Nasal Cannula 2 05/11/16 13:45 101 20 191/92 100 Room Air 05/11/16 13:40 99 Nasal Cannula 2.00 05/11/16 13:40 99 2.00 Result Diagram: 05/12/1635105/12/[id number] Objective Remarks GENERAL: This is a well-nourished, well-developed patient, in no apparent distress. SKIN: No rashes, ecchymoses or lesions. Cool and dry. HEAD: Atraumatic. Normocephalic. No temporal or scalp tenderness. EYES: Pupils equal round and reactive. Extraocular motions intact. No scleral icterus. No injection or drainage. ENT: Nose without bleeding, purulent drainage or septal hematoma. Throat without erythema, tonsillar hypertrophy or exudate. Uvula midline. Airway patent. NECK: Trachea midline. No JVD or lymphadenopathy. Supple, nontender, no meningeal signs. CARDIOVASCULAR: Regular rate and rhythm without murmurs, gallops, or rubs. RESPIRATORY: Clear to auscultation. Breath sounds equal bilaterally. No wheezes , rales, or rhonchi. GASTROINTESTINAL: Abdomen soft, non-tender, nondistended. No hepato-splenomegaly , or palpable masses. No guarding. MUSCULOSKELETAL: Extremities without clubbing, cyanosis, or edema. No joint tenderness, effusion, or edema noted. No calf tenderness. Negative Homans sign bilaterally. NEUROLOGICAL: Awake and alert. Cranial nerves II through XII intact. Motor and sensory grossly within normal limits. Five out of 5 muscle strength in all muscle groups. Normal speech. A/P Assessment and Plan 60 years old female admitted with stroke alert due to losing of consciousness, seizure, slurred speech TIA left internal carotid artery versus hypertension encephalopathy Hypertension urgency malignant Anxiety Leukocytosis mostly stress reaction Constipation: We'll give stool softener History of alcohol and tobacco abuse Diabetic polyneuropathy Diabetes mellitus DVT prophylaxis Plan: Permissive hypertension keep blood pressure below 160/100, Vasotec and labetalol when necessary Head and neck CTA reviewed personally by me no significant etiology explain the symptom Appreciate Neurology consul, recommended completing workup as below Patient was given ASA 2-D echo Holter monitor EEG CIMI protocol Smoking cessation counseling Patient is on 40 units of Levemir at home, will reduce that to 15 units and cover with insulin sliding scale and monitor Accu-Chek with diabetic diet and diabetic education Shari Russell MD May 12, 2016 12:35
[2016-05-12] MEDS ORDERED: DOCUSATE SODIUM 50 MG/SENNA 8.6 MG TAB PO PRN (12:45)
[2016-05-12] MEDS ORDERED: BISACODYL 10 MG SUPP PR PRN (12:45)
[2016-05-12] MEDS ORDERED: MAGNESIUM HYDROXIDE SUSP 30 ML CUP PO PRN (12:45)
--- NOTE | 2016-05-12 16:17 | MG ---
cc: HARI BELLO M.D. Lab No: [id number] Date: 05/12/2016 Age: Sex: F Race: TECHNIQUE 17 channel EEG. DESCRIPTION: The background rhythm is that of a symmetrical alpha rhythm, frequency is roughly 8 Hz, amplitude 20 microvolts. There is occasional muscle artifact. No lateralizing features identified. No epileptiform features are seen. Photic stimulation results in normal driving response, during drowsiness, there is some slowing in the theta range. INTERPRETATION This is a normal EEG. MD OBIE Ramos/MAUREENL /3:07 PM /3:44 PM
--- NOTE | 2016-05-12 17:33 | EC ---
Study Study Date:05/12/2016 STUDY CONCLUSIONS SUMMARY - Left ventricle: The cavity size was normal. Wall thickness was normal. Systolic function was normal. The estimated ejection fraction was in the range of 55% to 65%. Wall motion was normal; there were no regional wall motion abnormalities. - Pulmonary arteries: PA peak pressure: 32mm Hg (S). If LV function is below 40, please consider prescribing an ACEI or ARB or document rationale for non-use. PROCEDURE DATA STUDY STATUS: Elective. Procedure: Transthoracic echocardiography. Image quality was good. Scanning was performed from the parasternal, apical, and subcostal acoustic windows. Study completion: The patient tolerated the procedure well. Transthoracic echocardiography. M-mode, complete 2D, complete spectral Doppler, and color Doppler. Patient status: Inpatient. CARDIAC ANATOMY LEFT VENTRICLE: The cavity size was normal. Wall thickness was normal. Systolic function was normal. The estimated ejection fraction was in the range of 55% to 65%. Wall motion was normal; there were no regional wall motion abnormalities. AORTIC VALVE: Trileaflet; normal thickness leaflets. Doppler: Transvalvular velocity was within the normal range. There was no stenosis. No regurgitation. AORTA: Aortic root: The aortic root was normal in size. MITRAL VALVE: Structurally normal valve. Doppler: Transvalvular velocity was within the normal range. There was no evidence for stenosis. No regurgitation. Peak gradient: 3mm Hg (D). LEFT ATRIUM: The atrium was normal in size. RIGHT VENTRICLE: The cavity size was normal. Wall thickness was normal. PULMONIC VALVE: Doppler: Transvalvular velocity was within the normal range. There was no evidence for stenosis. No regurgitation. TRICUSPID VALVE: Structurally normal valve. Doppler: Transvalvular velocity was within the normal range. No regurgitation. PULMONARY ARTERY: The main pulmonary artery was normal-sized. Systolic pressure was within the normal range. RIGHT ATRIUM: The atrium was normal in size. PERICARDIUM: There was no pericardial effusion. SYSTEMIC VEINS: Inferior vena cava: The vessel was normal in size. BASIC MEASUREMENTS ADULT Normal Left ventricle LV internal dimension, ED, chordal level, *40.1 mm 43-52 PLAX LV posterior wall thickness, ED 7.22 mm IVS/LVPW ratio, ED *1.33 <1.3 Ventricular septum Septal thickness, ED 9.58 mm Aortic valve Leaflet separation 17 mm 15-26 Left atrium Anterior-posterior dimension 28 mm Right ventricle RV internal dimension, ED, PLAX 19.8 mm 19-38 BASIC MEASUREMENTS ADULT Normal Aortic valve Leaflet separation 17 mm 15-26 Aorta Root diameter, ED 29 mm 20-37 DOPPLER MEASUREMENTS ADULT Normal Main pulmonary artery Pressure, S *32 mm Hg =30 Mitral valve Peak E-wave velocity 80.9 cm/s Peak A-wave velocity 78 cm/s Peak gradient, D 3 mm Hg Peak E/A ratio 1 Tricuspid valve Regurgitant peak velocity 232 cm/s Peak RV-RA gradient, S 22 mm Hg Maximal regurgitant velocity 232 cm/s Systemic veins Estimated CVP 10 mm Hg Right ventricle RV pressure, S *32 mm Hg <30 LEGEND: Mean values are shown as u=mean value. Asterisk (*) valle values outside specified normal range. Prepared and signed by Kofi Corrales [id number]
--- NOTE | 2016-05-12 17:42 | RADRPT ---
EXAM DATE/TIME: 05/12/2016 16:32 [facility] COMPARISON: No previous studies available for comparison. INDICATIONS : CVA. Seizures. MEDICAL HISTORY : Diabetes mellitus type 2. Carcinoma, ovarian. Hypertension. Carcinoma, cervical. SURGICAL HISTORY : Fusion, lumbar. Hysterectomy. Wrist surgery. Adrenal gland removal. ENCOUNTER: Subsequent ACUITY: 2 day PAIN SCORE: 0/10 LOCATION: head. TECHNIQUE: Multiplanar, multisequence MRI of the brain was performed without contrast. FINDINGS: CEREBRUM: The ventricles are normal for age. No evidence of midline shift, mass lesion, hemorrhage or acute in farction. No extraaxial fluid collections are seen. The pituitary gland and suprasellar cistern are normal in configuration. WHITE MATTER: Scattered punctate areas of T2 prolongation in the periventricular white matter potentially microvasc ular ischemic are nonspecific. POSTERIOR FOSSA: The cerebellum and brainstem are intact. The 4th ventricle is midline. The cerebellopontine angle is unremarkable. The cerebellar tonsils are normal in position. DIFFUSION IMAGING: No focal areas of restricted diffusion are seen. No evidence of acute infarction. EXTRACRANIAL: The visualized portions of the orbits and paranasal sinuses are unremarkable. CONCLUSION: Central white matter disease. No acute intracranial findings Ever Frederick MD on May 12, 2016 at 17:38 Board Certified Radiologist. This report was verified electronically.
[2016-05-12] MEDS: ATORVASTATIN 20 MG TAB PO SCH (21:21)
[2016-05-12] MEDS: INSULIN DETEMIR 100 UNITS/ML VIAL SQ SCH (21:21)
[2016-05-13 00:36] VITALS: BP 145/75; PULSE 78; RESP 18; TEMP 98.8; O2SAT 98
[2016-05-13] MEDS: HEPARIN SODIUM - SQ 10,000 UNITS/ML VIAL SQ SCH ×2 (02:00→09:07)
[2016-05-13 05:21] VITALS: BP 141/67; PULSE 88; RESP 21; TEMP 98.9; O2SAT 98
[2016-05-13] MEDS: DOCUSATE SODIUM 100 MG CAP PO SCH (05:30)
[2016-05-13] MEDS: INSULIN NovoLIN REGULAR SUPPLEMENTAL SCALE SQ SCH ×2 (06:39→12:01)
[2016-05-13 08:00] VITALS: PULSE 64
[2016-05-13 08:22] VITALS: BP 128/67; PULSE 84; RESP 20; TEMP 97.5; O2SAT 99
--- NOTE | 2016-05-13 08:42 | HHI.PR ---
Review/Management Diagnosis/Plan: (1) TIA involving left internal carotid artery Plan: possible vs htn encephalopathy mri brain no acute stroke. mild white matter dz: +tob/dm/htn echo ok eeg-nml recs exam stable aspirin/satin, ldl goal <70 bp/glucose control tobacco cessation/lifestyle modification stress reduction- reviewed deep breathing exercises for her to do; further f/u outpatient and with her pcp d/c planning today f/u pcp and us in 1-2 weeks (2) Hypertensive urgency, malignant Plan: bp control (3) Anxiety Plan: on xanax (4) Panic attacks (5) DM polyneuropathy Plan: on gabapentin (6) DM (diabetes mellitus) Subjective Subjective Comments No acute events reported "doc what do i do about my stress?" no suicidal thoughts/ideation No headache No chest pain No dyspnea Active Medications Current Medications Medications (Trade) Dose Ordered Sig/Sha Route Start Time Stop Time Status Last Admin (NS Flush) 2 ml UNSCH PRN FLUSH 05/11/16 17:30 (NS Flush) 2 ml BID FLUSH 05/11/16 21:00 05/12/16 21:22 (Tylenol) 650 mg Q4H PRN PO 05/11/16 17:30 05/13/16 05:30 (Zofran Inj) 4 mg Q6H PRN IVP 05/11/16 17:30 (Dulcolax Supp) 10 mg DAILY PRN [place] 05/11/16 17:30 (Colace) 100 mg Q12H PO 05/11/16 18:00 05/13/16 05:30 (Senokot) 17.2 mg Q12H PRN PO 05/11/16 17:30 (Heparin Inj) 5,000 units Q8H SQ 05/11/16 18:00 05/13/16 02:00 (Narcan Inj) 0.4 mg UNSCH PRN IV 05/11/16 17:30 (Ativan) 1 mg Q4H PRN PO 05/11/16 17:30 (Ativan Inj) 1 mg Q4H PRN IV PUSH 05/11/16 17:30 (Ativan) 2 mg Q2H PRN PO 05/11/16 17:30 (Ativan Inj) 2 mg Q2H PRN IV PUSH 05/11/16 17:30 (Ativan Inj) 2 mg Q1H PRN IV PUSH 05/11/16 17:30 05/12/16 08:08 (Ativan Inj) 2 mg Q15M PRN IV PUSH 05/11/16 17:30 (Aspirin) 325 mg DAILY PO 05/12/16 09:00 05/12/16 09:05 (D50w (Vial) Inj) 25 ml UNSCH PRN IV PUSH 05/11/16 18:00 (Glucagon Inj) 1 mg UNSCH PRN OTHER 05/11/16 18:00 (Xanax) 0.25 mg Q8H PRN PO 05/11/16 18:15 05/12/16 21:21 (Levemir Inj) 15 units HS SQ 05/11/16 21:00 05/12/16 21:21 (Lipitor) 20 mg HS PO 05/11/16 21:00 05/12/16 21:21 (Zetia) 10 mg DAILY PO 05/12/16 09:00 05/12/16 09:58 (Protonix) 20 mg DAILY PO 05/12/16 09:00 05/12/16 09:06 (Zoloft) 50 mg DAILY PO 05/12/16 09:00 05/12/16 09:06 (Vasotec Inj) 1.25 mg Q4H PRN IV 05/12/16 09:30 (Trandate Inj) 10 mg Q2H PRN IV 05/12/16 09:30 (Neurontin) 400 mg TID PO 05/12/16 18:00 05/12/16 17:48 (Milk Of Magnesia Liq) 30 ml Q6H PRN PO 05/12/16 12:45 (Dayan-Colace) 2 tab BID PRN PO 05/12/16 12:45 Allergies Allergies Coded Allergies Tomato (Verified Allergy, Severe, ITCHING, 05/11/16) Levaquin (Verified Allergy, Intermediate, ITCHING, 05/11/16) Pineapple (Verified Allergy, Intermediate, LIPS SWELL, 05/11/16) Uncoded Allergies VICODEN ( Allergy, Mild, 04/20/08) Review of Systems All other ROS: ROS reviewed as documented in chart Exam I&O / VS Vital Signs Date Time Temp Pulse Resp B/P Pulse Ox O2 Delivery O2 Flow Rate FiO2 05/13/16 08:22 97.5 84 20 128/67 99 05/13/16 06:36 16 05/13/16 05:21 98.9 88 21 141/67 98 05/13/16 00:36 98.8 78 18 145/75 98 05/12/16 23:24 94 05/12/16 23:00 96 21 05/12/16 20:04 98.7 95 18 201/77 92 05/12/16 20:00 97.8 99 18 149/88 98 05/12/16 19:55 97.8 87 18 139/68 99 05/12/16 15:36 83 05/12/16 14:45 90 172/83 05/12/16 14:43 90 145/76 05/12/16 14:41 99.0 83 18 132/67 100 05/12/16 14:11 86 17 130/72 100 Nasal Cannula 2 05/12/16 12:19 84 16 133/71 100 Nasal Cannula 2 05/12/16 09:14 78 16 149/80 97 Room Air General: Alert and Oriented, No acute distress Eye: EOMI Respiratory: Non-labored respirations Cardiology: Normal rate Neurologic: Alert, Oriented Psychiatric: Cooperative, Appropriate mood & affect, Normal judgement, Non- suicidal Exam Comments ox 3, fluent, was speaking on the cell phone clearly when i entered, follows, no aphasia, eomi, face sym,no focal weakness, no drift, moderate stocking-glove neuropathy, msr 1-2+sym Problem Qualifiers (1) DM polyneuropathy: Qualified Code: E08.42 - Diabetic polyneuropathy associated with diabetes mellitus due to underlying condition (2) DM (diabetes mellitus): Tommy Chapa MD May 13, 2016 08:42
[2016-05-13] MEDS: ASPIRIN 325 MG TAB PO SCH (09:06)
[2016-05-13] MEDS: GABAPENTIN 400 MG CAP PO SCH ×2 (09:06→12:03)
[2016-05-13] MEDS: PANTOPRAZOLE SOD 20 MG DELAYED RELEASE TAB PO SCH (09:06)
[2016-05-13] MEDS: SERTRALINE HCL 50 MG TAB PO SCH (09:07)
[2016-05-13] MEDS: EZETIMIBE 10 MG TAB PO SCH (09:07)
[2016-05-13] MEDS: SODIUM CHLORIDE 0.9% FLUSH 5 ML FLUSH FLUSH SCH (09:08)
[2016-05-13] MEDS ORDERED: ASPI325T PO (09:37)
[2016-05-13] MEDS ORDERED: LEVEMIR SQ (09:37)
--- NOTE | 2016-05-13 11:16 | HHI.DS ---
Discharge Summary Admission Date May 11, 2016 at 14:39 Discharge Date: May 13, 2016 Admitting Diagnosis intermittent expressive aphasia (1) Expressive aphasia ICD Code: R47.01 (2) Left-sided weakness ICD Code: M62.81 (3) Panic attacks ICD Code: F41.0 (4) DM polyneuropathy ICD Code: E11.42 (5) DM (diabetes mellitus) ICD Code: E11.9 (6) TIA involving left internal carotid artery ICD Code: G45.1 Procedures See below Brief History - From Admission 60 years old female brought in the ambulance to the ED and a stroke alert. Per the EMR patient initially was brought due to seizure however they noticed some difficulty with speech and her blood pressure was 255 systolic with a blood sugar of 300. The patient told me that the symptoms started this afternoon when she woke up and gave herself 10 units of NovoLog and she went to do herself a meal when she started feeling cold with short of breath and feeling wobbly, she denied cold sweat, I discussed with her daughter and with the lady who was with her and witnessed episode. She told me patient lost consciousness for a few seconds and she was shaking all her body, she could not give exact type of that shaking. 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 Then she told me she had a history of glaucoma, and similar episode which she called it a stroke in the past. 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 The lady who witnessed her also mentioned some slurred speech. Age and symptoms resolved after arriving to ED, neurology has been contacted, the decision was made not to administer TPA Currently patient feeling anxious, no chest pain or short of breath or headache or blurry vision, her neuro exam is within normal limits, no abdominal pain diarrhea or constipation, no orthopnea or PND or leg swelling. She admitted smoking and drinking alcohol daily. CBC/BMP: 05/12/16 0352 05/12/16 0352 Significant Findings Laboratory Tests Test 05/11/16 05/11/16 05/12/16 13:45 14:32 03:52 White Blood Count 12.2 TH/MM3 11.7 TH/MM3 (4.0-11.0) (4.0-11.0) Neutrophils # (Auto) 7.9 TH/MM3 (1.8-7.7) Activated Partial 22.2 SEC Thromboplast Time (24.3-30.1) Bedside Glucose 214 MG/DL (60-95) Troponin I LESS THAN 0.02 NG/ML (0.02-0.05) Urine Glucose (UA) 1000 mg/dL (NEG) Urine Bacteria RARE /hpf (NONE) Red Blood Count 3.69 MIL/MM3 (4.00-5.30) Lymphocytes # (Auto) 5.0 TH/MM3 (1.0-4.8) Estimat Glomerular Filtration 79 ML/MIN (>89) Rate Random Glucose 133 MG/DL (74-106) Calcium Level 8.2 MG/DL (8.5-10.1) Triglycerides Level 277 MG/DL (42-150) Cholesterol Level 202 MG/DL (120-200) LDL Cholesterol 108 MG/DL (0-99) HDL Cholesterol 39.1 MG/DL (40.0-60.0) PE at Discharge GENERAL: This is a well-nourished, well-developed patient, in no apparent distress. SKIN: No rashes, ecchymoses or lesions. Cool and dry. HEAD: Atraumatic. Normocephalic. No temporal or scalp tenderness. EYES: Pupils equal round and reactive. Extraocular motions intact. No scleral icterus. No injection or drainage. ENT: Nose without bleeding, purulent drainage or septal hematoma. Throat without erythema, tonsillar hypertrophy or exudate. Uvula midline. Airway patent. NECK: Trachea midline. No JVD or lymphadenopathy. Supple, nontender, no meningeal signs. CARDIOVASCULAR: Regular rate and rhythm without murmurs, gallops, or rubs. RESPIRATORY: Clear to auscultation. Breath sounds equal bilaterally. No wheezes , rales, or rhonchi. GASTROINTESTINAL: Abdomen soft, non-tender, nondistended. No hepato-splenomegaly , or palpable masses. No guarding. MUSCULOSKELETAL: Extremities without clubbing, cyanosis, or edema. No joint tenderness, effusion, or edema noted. No calf tenderness. Negative Homans sign bilaterally. NEUROLOGICAL: Awake and alert. Cranial nerves II through XII intact. Motor and sensory grossly within normal limits. Five out of 5 muscle strength in all muscle groups. Normal speech. Hospital Course 60 years old female admitted with stroke alert due to losing of consciousness, seizure, slurred speech TIA left internal carotid artery versus hypertension encephalopathy Hypertension urgency malignant Anxiety Leukocytosis mostly stress reaction Constipation: We'll give stool softener History of alcohol and tobacco abuse Diabetic polyneuropathy Diabetes mellitus DVT prophylaxis Plan: Permissive hypertension keep blood pressure below 160/100, Vasotec and labetalol when necessary Head and neck CTA reviewed personally by me no significant etiology explain the symptom Appreciate Neurology consul, recommended completing workup as below Patient was given ASA 2-D echo Holter monitor EEG CIMS protocol Smoking cessation counseling Patient is on 40 units of Levemir at home, will reduce that to 15 units and cover with insulin sliding scale and monitor Accu-Chek with diabetic diet and diabetic education Ostk-ht-[id number] encounter performed with the patient on discharge day, as well as physical exam, summary of hospitalization course and postdischarge plan has been D/W the patient. D/W nurse D/W returned case inspector. Discharge medications reviewed and printed and signed, post discharge follow up visit with PCP and other specialist as well as Brief hospital course and discharge summary has been placed. Pt Condition on Discharge: Fair Discharge Disposition: Discharge Home Discharge Time: > 30 minutes Discharge Instructions DIET: Follow Instructions for: Heart Healthy Diet, Diabetic Diet Activities you can perform: Weight Bearing as Kellie Follow up Referrals: Neurology - 2 Weeks with Tommy Chapa MD New Medications: Aspirin (Aspirin) 325 Mg Tab 325 MG PO DAILY tia Days 30 TAB Insulin Detemir Inj (Levemir Inj) 1,000 unit/ 10 ML Vial 15 UNITS SQ HS dm Days 30 INJECTION Continued Medications: Atorvastatin (Atorvastatin) 20 Mg Tab 20 MG PO HS Cholesterol Management #0 Ref 0 TAB Ezetimibe (Zetia) 10 Mg Tab 10 MG PO DAILY #0 Ref 0 TAB Gabapentin (Gabapentin) 600 Mg Tab 400 MG PO QID #0 Ref 0 TAB Hydrochlorothiazide (Hydrochlorothiazide) 25 Mg Tab 25 MG PO DAILY #0 Ref 0 TAB Insulin Aspart Inj (Novolog Inj) 1,000 Unit/10 Ml Vial 0 SQ DIRECTED Sliding Scale as directed. Blood Sugar Management #0 Ref 0 ML Insulin Glargine Inj (Lantus Solostar Pen Inj) 300 Unit/3 Ml Pen 40 UNITS SQ HS Blood Sugar Management Ref 0 PEN Lisinopril (Lisinopril) 20 Mg Tab 20 MG PO DAILY #0 Ref 0 TAB Omeprazole (Omeprazole) 20 Mg Tab 20 MG PO DAILY #0 Ref 0 TAB Sertraline (Sertraline) 50 Mg Tab 50 MG PO DAILY #0 Ref 0 TAB Tramadol (Tramadol) 50 Mg Tab 50 MG PO Q6H PRN PAIN Ref 0 TAB Shari Russell MD May 13, 2016 11:16
[2016-05-13 11:52] LABS: HEMOGLOBIN A1a 1.8 %; HEMOGLOBIN A1b 2.5 %; HEMOGLOBIN Ao 79.8 %; HEMOGLOBIN LA1C 1.4 %; HEMOGLOBIN P3 4.1 %
[2016-05-13 12:08] VITALS: BP_SYST 139; BP_SYST 142; BP_DIAS 65; BP_DIAS 67; PULSE 88; RESP 18; TEMP 98.2; O2SAT 98
--- NOTE | 2016-05-15 17:30 | HM ---
Date Performed: 05/13/2016 Time Performed: 10:11:00 HOOKUP DATE: 05/13/16 10:11:00 AM Fri ANALYSIS START TIME: 05/13/2016 10:16:00 AM ANALYSIS END TIME: 05/14/2016 10:20:00 AM PATIENT AGE: 60 PATIENT HEIGHT PATIENT WEIGHT DRUG LIST PATIENT DIAGNOSIS: INTERMITTENT EXPRESSIVE APHASIA TEST NARRATIVE: The patient's average heart rate was 91 BPM. Heart rates greater than 120 B PM were noted 1% of the time. No episodes of bradycardia were noted. No pauses exceeding 2.0 sec onds were noted. 4 ventricular ectopics, which represented < 1% of the total beat count, were not ed. The highest ventricular ectopic frequency occurred from 12:00 AM to 01:00 AM Sat. During this t vivek 2 VE(s) occurred. Ventricular ectopics were observed as 4 isolated beat(s) only. No couplets or runs were noted. No supraventricular ectopics were noted. No episodes of ST depression (defi michael as -1.0 mm or more) were noted in channel 1. No episodes of ST depression (defined as -1.0 mm or more) were noted in channel 2. No episodes of ST depression (defined as -1.0 mm or more) were noted in channel 3. PT DID NOT RETURN DIARY WITH HOLTER MONITOR. TEST INTERPRETATION: 1) Sinus rhythm , no bradycardia, episodes of tachycardia which are sinus in nature 2) Rare PVC, no PACs 3) No ST amena nges noted 4) No diary returned by the patient 5) No episodes of atrial fibrillation noted Signed by : Rufino Lester
== END 2016-05-13 13:18 | disposition home or self-care (01) ==
LOC: NEPA 13:39 → INTOOBSV 14:39 → NEDA 14:39 → NEPFCDU 05-12 14:20
PROVIDERS: ADMIT Hospitalist; ATTEND Hospitalist
DX: R47.01 Aphasia (principal); R53.1 Weakness; F41.0 Panic disorder [episodic paroxysmal anxiety]; E11.42 Type 2 diabetes mellitus with diabetic polyneuropathy; G45.1 Carotid artery syndrome (hemispheric); I16.0 Hypertensive urgency; D72.828 Other elevated white blood cell count; M19.90 Unspecified osteoarthritis, unspecified site; F17.200 Nicotine dependence, unspecified, uncomplicated; H40.9 Unspecified glaucoma; H26.9 Unspecified cataract; K59.00 Constipation, unspecified; Z86.73 Personal history of transient ischemic attack (TIA), and cerebral infarction without residual deficits; Z85.42 Personal history of malignant neoplasm of other parts of uterus; Z79.4 Long term (current) use of insulin; Z80.7 Family history of other malignant neoplasms of lymphoid, hematopoietic and related tissues; Z82.3 Family history of stroke; R94.31 Abnormal electrocardiogram [ECG] [EKG]
CPT/HCPCS: 0042T; 70450; 70496; 70498; 70551; 80048; 80061; 80307; 80320; 81001; 82435; 82550; 82565; 82947; 82948; 83036; 84132; 84295; 84484; 84520; 85025; 85384; 85610; 85730; 86850; 86900; 86901; 92526; 92610; 93005; 93225; 93226; 93306; 95819; 97163; 97167; 99285; G0378; G8987; G8988; G8996; G8997; G8998; J1644; J2060; J7030; Q9967